=== PATIENT | male | born 1975 | race Caucasian/White ===

== ENCOUNTER 2023-06-10 17:09 | Emergency (ER) | payer OTHER ==
[~2023-06-10] VITALS: Ht 167.6 cm; Wt 66.7 kg
[2023-06-10] MEDS ORDERED: CEPHALEXIN500 M1 PO (23:04)
[2023-06-10 23:26] VITALS: BP 119/95
== END 2023-06-10 23:10 | disposition home or self-care (01) ==
LOC: ED 17:09
DX: L03.115 Cellulitis of right lower limb (principal); L02.415 Cutaneous abscess of right lower limb; F17.200 Nicotine dependence, unspecified, uncomplicated
CPT/HCPCS: 80053; 85025; 99283; A9270

== ENCOUNTER 2024-04-29 19:45 | Emergency (ER) | payer OTHER ==
[~2024-04-29] VITALS: Ht 167.6 cm; Wt 55.0 kg
[~2024-04-29 19:45] MED LIST: CEPHALEXIN500 M1 PO; K-TAB ER20 MEQ PO
--- OUTSIDE RECORDS SUMMARY | 2024-04-29 19:54 | XMS ---
PreManage Notification: SIL DYER Security Licensed Social Worker Events No recent Security Events currently on file CRITERIA MET - [facility] - 2 Visits in 30 Days CARE PROVIDERS -[facility] Dentist: Clinical Nursing Coordinator [facility] PHONE: [phone] - [place]- Dentist: Clinical Nursing Coordinator [facility] PHONE: [phone] TERRY TATUM Internal Medicine Current PHONE: Unknown Shannen has no Care Guidelines for this patient. E.Pily VISIT COUNT (12 MO.) 3 JOANA Carvalhonce [place] MShahidaAdiShahida ([place]) TOTAL 4 NOTE: Visits indicate total known visits. ED/UCC VISIT TRACKING (12 MO.) 04/29/2024 19:47 [facility] [place] TYPE: Emergency COMPLAINT: - ABNORMAL LAB WORK 04/17/2024 10:00 [facility] [place] TYPE: Emergency COMPLAINT: - RECTAL BLEED DIAGNOSES: - Hemorrhage of anus and rectum - Hypokalemia - Imprisonment and other incarceration - Melena - Nicotine dependence, unspecified, uncomplicated - Other specified abnormal findings of blood chemistry 11/04/2023 14:55 [facility] Rosio RIVERA (Rosio Avelar) TYPE: Emergency DIAGNOSES: - Iron deficiency anemia, unspecified - Abnormal Lab - [facility] by [facility] transfusion 06/10/2023 17:09 [facility] [place] TYPE: Emergency COMPLAINT: - RT LEG PROBLEM DIAGNOSES: - Cellulitis of right lower limb - Cutaneous abscess of right lower limb - Nicotine dependence, unspecified, uncomplicated - Unspecified open wound, right lower leg, initial encounter INPATIENT VISIT TRACKING (12 MO.) No inpatient visits to display in this time frame [email or web address]
[2024-04-29 20:19] LABS: BASOPHILS 0.3 % (0-2); EOSINOPHILS 0.1 % (0-6); HEMATOCRIT 42.9 % (35.0-50.0); HEMOGLOBIN 13.7 g/dL (12.0-18.0); MCH 23.1 (27-36); MCHC 31.9 g/dl (30-36); MCV 72.2 fl (81-99); MONOCYTES 13.4 % (0-12); NEUTROPHILS 66.2 % (39-80); PLATELET COUNT 235 K/uL (140-440); RBC 5.93 M/ul (4.3-5.7); RDW 26.2 (10.5-15.0)
[2024-04-29 20:35] LABS: ALBUMIN 1.4 g/dL (3.4-5.0); ALBUMIN/GLOBULIN RATIO 0.42 (1.1-2.4); ANION GAP 12.3 (7-21); BILIRUBIN, TOTAL 0.4 ng/dL (0.2-1.0); BUN/CREATININE RATIO 11.68 (6.0-28.6); CREATININE, SERUM 0.77 mg/dL (0.70-1.30); POTASSIUM 4.3 mmol/L (3.5-5.1); PROTEIN, TOTAL 4.7 g/dL (6.4-8.2)
[2024-04-29 20:41] LABS: CALCIUM 5.8 mg/dL (8.5-10.1)
[2024-04-29] MEDS ORDERED: DEXTROSE 5% 100 ML IV ONE (20:47)
[2024-04-29] MEDS ORDERED: CALCIUM CHLORIDE 1,000 MG in DEXTROSE 5% 100 ML IV ONE (21:00)
[2024-04-29 22:06] VITALS: BP 111/84
== END 2024-04-29 22:07 | disposition home or self-care (01) ==
LOC: ED 19:45
PROVIDERS: Family Medicine
DX: E83.51 Hypocalcemia (principal); E88.09 Other disorders of plasma-protein metabolism, not elsewhere classified; F17.200 Nicotine dependence, unspecified, uncomplicated
CPT/HCPCS: 36415; 80053; 85025; 85060; 96374; 99283-25